=== PATIENT | female | born 1965 | race Two or more races ===

== ENCOUNTER 2023-02-23 17:46 | Inpatient (IN) | payer MEDICAID, OTHER ==
[~2023-02-23] VITALS: Ht 149.9 cm; Wt 96.9 kg
[2023-02-23] MEDS ORDERED: FUROSEMIDE 40 MG/4 ML VIAL IV ONE (18:30)
[2023-02-23 18:37] LABS: Basophils # (auto) 0 10 ^3/uL (0-0.2); Basophils % (auto) 0.3 % (0.0-2.0); Eosinophils # (auto) 0 10 ^3/uL (0-0.8); Eosinophils % (auto) 0.1 % (0.0-7.0); Hematocrit 30.2 % (36.0-46.0); Lymphocytes # (auto) 1.4 10 ^3/uL (0.4-5.4); Lymphocytes % (auto) 8.3 % (10.0-50.0); Mean Corpuscular Hemoglobin 27.6 pg (28.0-32.0); Mean Corpuscular Volume 83.5 fL (80.0-100.0); Monocytes % (auto) 5.8 % (0.0-12.0); Neutrophils # (auto) 14.3 10 ^3/uL (1.6-8.6); Neutrophils % (auto) 85.5 % (37.0-80.0); Nucleated Red Blood Cells % 0.2 %; Red Blood Cells 3.62 10^6/uL (4.0-5.20); Red Cell Distribution Width 15.1 % (11.8-14.3); White Blood Cell 16.7 10^3/uL (4.4-10.8)
[2023-02-23 18:53] LABS: Albumin 2.9 g/dL (3.4-5.0); Calcium 7.9 mg/dL (8.5-10.1); Potassium 4.6 mmol/L (3.5-5.1)
[2023-02-23 18:57] LABS: BUN/Creatinine Ratio 42.5 (10.0-20.0); Bilirubin, Total 0.2 mg/dL (0.2-1.0); Total Protein 5.1 g/dL (6.4-8.2)
[2023-02-23 19:08] LABS: Urine Bacteria FEW /hpf (None Seen); Urine Blood Negative /uL (Negative); Urine Specific Gravity 1.013 (1.001-1.035); Urine WBC 4 /hpf (0 - 5)
[2023-02-23] MEDS ORDERED: AZITHROMYCIN 500MG/ 250ML 250 ML IV ONE (20:07)
[2023-02-23] MEDS ORDERED: MORPHINE SULFATE INJ 2 MG/ml SYRG IV PRN (21:45)
[2023-02-23] MEDS ORDERED: DEXTROSE (50%) 50ML SYRG IV PRN (21:45)
[2023-02-23] MEDS ORDERED: ONDANSETRON HCL 4 MG/2 ML VIAL IV PRN (21:45)
[2023-02-23] MEDS ORDERED: NITROGLYCERIN 0.4 MG SL TAB SL PRN (21:45)
[2023-02-24] MEDS: InsuLIN REG 1unit/0.01ml Soln (100units/ml) SC SCH ×5 (00:11→22:26)
[2023-02-24] MEDS: ACCU-CHEK COMFORT CURVE STRIP VI SCH ×5 (00:11→22:25)
[2023-02-24] MEDS: METOPROLOL TARTRATE 50 MG TAB PO SCH ×3 (00:17→22:25)
[2023-02-24] MEDS: ATORVASTATIN 20 MG TAB PO SCH ×2 (00:18→22:25)
[2023-02-24] MEDS: GABAPENTIN 100 MG CAP PO SCH ×3 (00:18→22:25)
[2023-02-24 04:11] LABS: Basophils # (auto) 0 10 ^3/uL (0-0.2); Basophils % (auto) 0.2 % (0.0-2.0); Eosinophils # (auto) 0.1 10 ^3/uL (0-0.8); Eosinophils % (auto) 0.4 % (0.0-7.0); Hematocrit 32.4 % (36.0-46.0); Hemoglobin 10.7 g/dL (12.2-16.2); Lymphocytes # (auto) 2.5 10 ^3/uL (0.4-5.4); Lymphocytes % (auto) 15.6 % (10.0-50.0); Mean Corpuscular Hemoglobin 27.7 pg (28.0-32.0); Mean Corpuscular Hgb Conc. 32.9 g/dL (32.0-36.0); Mean Corpuscular Volume 84.2 fL (80.0-100.0); Monocytes # (auto) 1.3 10 ^3/uL (0-1.3); Monocytes % (auto) 8.2 % (0.0-12.0); Neutrophils # (auto) 12.3 10 ^3/uL (1.6-8.6); Neutrophils % (auto) 75.6 % (37.0-80.0); Nucleated Red Blood Cells % 0.1 %; Red Blood Cells 3.84 10^6/uL (4.0-5.20); White Blood Cell 16.3 10^3/uL (4.4-10.8)
[2023-02-24 04:22] LABS: Albumin 2.5 g/dL (3.4-5.0); BUN/Creatinine Ratio 38.3 (10.0-20.0); Calcium 8.2 mg/dL (8.5-10.1); Potassium 3.7 mmol/L (3.5-5.1)
[2023-02-24 04:24] LABS: Bilirubin, Total 0.2 mg/dL (0.2-1.0); Total Protein 5.6 g/dL (6.4-8.2)
[2023-02-24] MEDS ORDERED: ALBUMIN 25% 50 ML IV ONE (05:15)
[2023-02-24] MEDS: FUROSEMIDE 20 MG/2 ML VIAL IV SCH ×2 (06:10→20:22)
[2023-02-24] MEDS: cefTRIAXone 1GM/50ML D5W 50 ML IV SCH (09:28)
[2023-02-24] MEDS: ACETAMINOPHEN 325 MG TAB PO PRN ×2 (09:39→20:05)
[2023-02-24] MEDS ORDERED: cefTRIAXone 1GM/50ML D5W 50 ML IV SCH (10:00)
[2023-02-24] MEDS: AZITHROMYCIN 500MG/ 250ML 250 ML IV SCH (10:44)
[2023-02-24] MEDS: ENOXAPARIN SOD 30 MG/0.3 ML SYRINGE SC SCH (10:44)
[2023-02-24] MEDS: LISINOPRIL 20 MG TAB PO SCH (10:45)
[2023-02-24] MEDS: PANTOPRAZOLE 40 MG TAB PO SCH (10:45)
[2023-02-24] MEDS ORDERED: DULO1CAP6 PO (13:08)
[2023-02-24] MEDS ORDERED: ATOR10TA52 PO (13:08)
[2023-02-24] MEDS ORDERED: PIOG1TAB36 PO (13:08)
[2023-02-24] MEDS ORDERED: QUET100T47 PO (13:08)
[2023-02-24] MEDS ORDERED: HYDR-3682 PO (13:08)
[2023-02-24] MEDS ORDERED: EMPA1TAB PO (13:08)
[2023-02-24] MEDS ORDERED: CLON-853 PO (13:08)
[2023-02-24] MEDS ORDERED: DULO1CAP4 PO (13:08)
[2023-02-24] MEDS ORDERED: GAB100C PO (13:08)
[2023-02-24] MEDS ORDERED: MET50T PO (13:08)
[2023-02-24 16:57] VITALS: BP 157/74
[2023-02-24 17:00] VITALS: BP 153/71
[2023-02-24 22:00] VITALS: BP 147/67
[2023-02-25 05:00] VITALS: BP 142/93
[2023-02-25] MEDS: FUROSEMIDE 20 MG/2 ML VIAL IV SCH ×2 (05:57→22:46)
[2023-02-25] MEDS: InsuLIN REG 1unit/0.01ml Soln (100units/ml) SC SCH ×4 (07:00→22:29)
[2023-02-25] MEDS: ACCU-CHEK COMFORT CURVE STRIP VI SCH ×4 (07:04→22:28)
[2023-02-25 08:30] VITALS: BP 136/74
[2023-02-25] MEDS: cefTRIAXone 1GM/50ML D5W 50 ML IV SCH (08:46)
[2023-02-25] MEDS: ACETAMINOPHEN 325 MG TAB PO PRN (08:47)
[2023-02-25] MEDS: AZITHROMYCIN 500MG/ 250ML 250 ML IV SCH (10:18)
[2023-02-25] MEDS: GABAPENTIN 100 MG CAP PO SCH ×2 (10:20→22:27)
[2023-02-25] MEDS: ENOXAPARIN SOD 30 MG/0.3 ML SYRINGE SC SCH (10:20)
[2023-02-25] MEDS: PANTOPRAZOLE 40 MG TAB PO SCH (10:20)
[2023-02-25] MEDS: LISINOPRIL 20 MG TAB PO SCH (10:22)
[2023-02-25] MEDS: METOPROLOL TARTRATE 50 MG TAB PO SCH ×2 (10:23→22:28)
[2023-02-25 12:30] VITALS: BP 157/50
[2023-02-25 17:00] VITALS: BP 160/93
[2023-02-25 22:00] VITALS: BP 118/74
[2023-02-25] MEDS: ATORVASTATIN 20 MG TAB PO SCH (22:28)
[2023-02-26 05:00] VITALS: BP 143/71
[2023-02-26] MEDS: ACCU-CHEK COMFORT CURVE STRIP VI SCH ×4 (06:16→22:08)
[2023-02-26] MEDS: InsuLIN REG 1unit/0.01ml Soln (100units/ml) SC SCH ×4 (06:19→22:09)
[2023-02-26] MEDS: ACETAMINOPHEN 325 MG TAB PO PRN (06:52)
[2023-02-26] MEDS: FUROSEMIDE 20 MG/2 ML VIAL IV SCH ×2 (06:52→18:45)
[2023-02-26 08:30] VITALS: BP 133/88
[2023-02-26 09:20] LABS: Basophils # (auto) 0.1 10 ^3/uL (0-0.2); Basophils % (auto) 0.7 % (0.0-2.0); Eosinophils # (auto) 0.1 10 ^3/uL (0-0.8); Eosinophils % (auto) 0.5 % (0.0-7.0); Hematocrit 35.2 % (36.0-46.0); Lymphocytes # (auto) 2.3 10 ^3/uL (0.4-5.4); Lymphocytes % (auto) 19.3 % (10.0-50.0); Mean Corpuscular Hemoglobin 28.2 pg (28.0-32.0); Mean Corpuscular Hgb Conc. 34.1 g/dL (32.0-36.0); Mean Corpuscular Volume 82.7 fL (80.0-100.0); Monocytes % (auto) 8.8 % (0.0-12.0); Neutrophils # (auto) 8.2 10 ^3/uL (1.6-8.6); Neutrophils % (auto) 70.7 % (37.0-80.0); Nucleated Red Blood Cells % 0.1 %; Red Blood Cells 4.26 10^6/uL (4.0-5.20); Red Cell Distribution Width 14.8 % (11.8-14.3); White Blood Cell 11.7 10^3/uL (4.4-10.8)
[2023-02-26 09:30] LABS: BUN/Creatinine Ratio 18.8 (10.0-20.0); Calcium 9.5 mg/dL (8.5-10.1); Potassium 3.7 mmol/L (3.5-5.1)
[2023-02-26] MEDS: cefTRIAXone 1GM/50ML D5W 50 ML IV SCH (10:01)
[2023-02-26] MEDS: GABAPENTIN 100 MG CAP PO SCH ×2 (10:02→22:08)
[2023-02-26] MEDS: PANTOPRAZOLE 40 MG TAB PO SCH (10:02)
[2023-02-26] MEDS: ENOXAPARIN SOD 30 MG/0.3 ML SYRINGE SC SCH (10:02)
[2023-02-26] MEDS: METOPROLOL TARTRATE 50 MG TAB PO SCH ×2 (10:02→22:08)
[2023-02-26] MEDS: LISINOPRIL 20 MG TAB PO SCH (10:02)
[2023-02-26 12:30] VITALS: BP 160/77
[2023-02-26] MEDS: AZITHROMYCIN 500MG/ 250ML 250 ML IV SCH (12:32)
[2023-02-26] MEDS ORDERED: IOHEXOL 350 MG/ML 100ML IJ ONE (15:37)
[2023-02-26 17:00] VITALS: BP 139/82
[2023-02-26] MEDS ORDERED: HEPARIN SODIUM (PORCINE) 5000 UNITS/ML 1ML VIAL IV ONE (18:15)
[2023-02-26] MEDS ORDERED: HEPARIN DRIP/D5W 100UNITS/ML 250 ML IV SCH (18:15)
[2023-02-26 19:23] LABS: Basophils # (auto) 0.1 10 ^3/uL (0-0.2); Basophils % (auto) 0.6 % (0.0-2.0); Eosinophils # (auto) 0.1 10 ^3/uL (0-0.8); Eosinophils % (auto) 0.8 % (0.0-7.0); Hematocrit 36.1 % (36.0-46.0); Hemoglobin 11.8 g/dL (12.2-16.2); Lymphocytes # (auto) 2.4 10 ^3/uL (0.4-5.4); Lymphocytes % (auto) 22.8 % (10.0-50.0); Mean Corpuscular Hemoglobin 27.4 pg (28.0-32.0); Mean Corpuscular Hgb Conc. 32.7 g/dL (32.0-36.0); Mean Corpuscular Volume 83.6 fL (80.0-100.0); Monocytes % (auto) 9.1 % (0.0-12.0); Neutrophils # (auto) 7.1 10 ^3/uL (1.6-8.6); Neutrophils % (auto) 66.7 % (37.0-80.0); Nucleated Red Blood Cells % 0.2 %; Red Blood Cells 4.31 10^6/uL (4.0-5.20); White Blood Cell 10.6 10^3/uL (4.4-10.8)
[2023-02-26 19:37] LABS: Partial Thromboplastin Time 28.4 sec (24.6-33.4)
[2023-02-26 22:00] VITALS: BP 129/75
[2023-02-26] MEDS: ATORVASTATIN 20 MG TAB PO SCH (22:08)
[2023-02-27 02:50] LABS: INR 1.05 (0.9-1.15)
[2023-02-27 02:51] LABS: Partial Thromboplastin Time > 139.0 sec (24.6-33.4)
[2023-02-27 05:00] VITALS: BP 128/73
[2023-02-27] MEDS: ACCU-CHEK COMFORT CURVE STRIP VI SCH ×4 (06:19→22:30)
[2023-02-27] MEDS: InsuLIN REG 1unit/0.01ml Soln (100units/ml) SC SCH ×4 (06:24→22:31)
[2023-02-27] MEDS: FUROSEMIDE 20 MG/2 ML VIAL IV SCH ×2 (06:29→18:51)
[2023-02-27 08:59] VITALS: BP 123/72
[2023-02-27 09:18] LABS: INR 1.03 (0.9-1.15)
[2023-02-27 09:56] LABS: Partial Thromboplastin Time 125.5 sec (24.6-33.4)
[2023-02-27] MEDS: PANTOPRAZOLE 40 MG TAB PO SCH (10:11)
[2023-02-27] MEDS: METOPROLOL TARTRATE 50 MG TAB PO SCH ×2 (10:12→22:44)
[2023-02-27] MEDS: LISINOPRIL 20 MG TAB PO SCH (10:12)
[2023-02-27] MEDS: GABAPENTIN 100 MG CAP PO SCH ×2 (10:12→22:31)
[2023-02-27] MEDS: ACETAMINOPHEN 325 MG TAB PO PRN (10:13)
[2023-02-27] MEDS: HEPARIN DRIP/D5W 100UNITS/ML 250 ML IV SCH (11:04)
[2023-02-27 13:00] VITALS: BP_SYST 123; BP_SYST 147; BP_DIAS 72; BP_DIAS 88
[2023-02-27] MEDS: cefTRIAXone 1GM/50ML D5W 50 ML IV SCH (13:20)
[2023-02-27] MEDS: AZITHROMYCIN 500MG/ 250ML 250 ML IV SCH (14:13)
[2023-02-27 17:07] VITALS: BP 134/91
[2023-02-27 17:35] LABS: INR 1.02 (0.9-1.15); Partial Thromboplastin Time 61.5 sec (24.6-33.4)
[2023-02-27 22:00] VITALS: BP 119/65
[2023-02-27] MEDS: ATORVASTATIN 20 MG TAB PO SCH (22:31)
[2023-02-28 00:10] LABS: INR 1.03 (0.9-1.15); Partial Thromboplastin Time 56.7 sec (24.6-33.4)
[2023-02-28 05:00] VITALS: BP 108/64
[2023-02-28] MEDS: ACCU-CHEK COMFORT CURVE STRIP VI SCH ×4 (05:34→21:53)
[2023-02-28] MEDS: FUROSEMIDE 20 MG/2 ML VIAL IV SCH ×2 (06:21→18:15)
[2023-02-28] MEDS: InsuLIN REG 1unit/0.01ml Soln (100units/ml) SC SCH ×4 (06:22→21:52)
[2023-02-28] MEDS: ACETAMINOPHEN 325 MG TAB PO PRN ×3 (06:23→20:02)
[2023-02-28 06:28] LABS: INR 1.01 (0.9-1.15); Partial Thromboplastin Time 60.9 sec (24.6-33.4)
[2023-02-28] MEDS: HEPARIN DRIP/D5W 100UNITS/ML 250 ML IV SCH (07:56)
[2023-02-28 09:00] VITALS: BP 147/84
[2023-02-28] MEDS: GABAPENTIN 100 MG CAP PO SCH ×2 (10:29→21:50)
[2023-02-28] MEDS: LISINOPRIL 20 MG TAB PO SCH (10:29)
[2023-02-28] MEDS: PANTOPRAZOLE 40 MG TAB PO SCH (10:29)
[2023-02-28] MEDS: METOPROLOL TARTRATE 50 MG TAB PO SCH ×2 (10:31→22:00)
[2023-02-28] MEDS: cefTRIAXone 1GM/50ML D5W 50 ML IV SCH (12:45)
[2023-02-28 13:00] VITALS: BP 105/60
[2023-02-28 13:24] LABS: INR 1.03 (0.9-1.15); Partial Thromboplastin Time 51.1 sec (24.6-33.4)
[2023-02-28] MEDS: AZITHROMYCIN 500MG/ 250ML 250 ML IV SCH (14:44)
[2023-02-28 16:34] VITALS: BP 111/75
[2023-02-28 20:00] VITALS: BP 107/68
[2023-02-28] MEDS: ATORVASTATIN 20 MG TAB PO SCH (21:50)
[2023-02-28 22:00] VITALS: BP 107/68
[2023-03-01] MEDS: ACETAMINOPHEN 325 MG TAB PO PRN ×2 (03:44→11:07)
[2023-03-01] MEDS: HEPARIN DRIP/D5W 100UNITS/ML 250 ML IV SCH ×2 (04:23→04:28)
[2023-03-01 05:00] VITALS: BP 122/68
[2023-03-01] MEDS: FUROSEMIDE 20 MG/2 ML VIAL IV SCH (05:57)
[2023-03-01] MEDS: ACCU-CHEK COMFORT CURVE STRIP VI SCH ×3 (06:07→17:00)
[2023-03-01] MEDS: InsuLIN REG 1unit/0.01ml Soln (100units/ml) SC SCH ×3 (06:07→17:00)
[2023-03-01 06:26] LABS: INR 1.03 (0.9-1.15)
[2023-03-01] MEDS: LISINOPRIL 20 MG TAB PO SCH (08:56)
[2023-03-01] MEDS: METOPROLOL TARTRATE 50 MG TAB PO SCH (08:56)
[2023-03-01] MEDS: cefTRIAXone 1GM/50ML D5W 50 ML IV SCH (08:56)
[2023-03-01] MEDS: GABAPENTIN 100 MG CAP PO SCH (08:56)
[2023-03-01] MEDS: PANTOPRAZOLE 40 MG TAB PO SCH (08:56)
[2023-03-01 09:00] VITALS: BP 127/76
[2023-03-01] MEDS ORDERED: HEPARIN DRIP/D5W 100UNITS/ML 250 ML IV SCH (09:00)
[2023-03-01] MEDS: AZITHROMYCIN 500MG/ 250ML 250 ML IV SCH (09:36)
[2023-03-01] MEDS ORDERED: HEPARIN SODIUM (PORCINE) 5000 UNITS/ML 1ML VIAL IV ONE (09:45)
[2023-03-01 13:00] VITALS: BP 132/55
[2023-03-01] MEDS ORDERED: AZIT250T8 PO (15:46)
[2023-03-01] MEDS ORDERED: APIX5TAB PO (15:46)
[2023-03-01] MEDS ORDERED: APIXABAN 5 MG TAB PO SCH (16:00)
[2023-03-01 16:04] LABS: INR 1.05 (0.9-1.15)
[2023-03-01 16:38] VITALS: BP 132/55
[2023-03-01 16:55] VITALS: BP 128/85
== END 2023-03-01 17:00 | disposition home or self-care (01) | DRG 720 ==
LOC: ER 17:46 → TELE 21:53 → TELE-WESTW 02-24 16:06
PROVIDERS: ADMIT Nurse Practitioner; ATTEND Internal Medicine
DX: A41.9 Sepsis, unspecified organism (principal); I26.99 Other pulmonary embolism without acute cor pulmonale; I13.0 Hypertensive heart and chronic kidney disease with heart failure and stage 1 through stage 4 chronic kidney disease, or unspecified chronic kidney disease; J18.9 Pneumonia, unspecified organism; E44.0 Moderate protein-calorie malnutrition; E88.09 Other disorders of plasma-protein metabolism, not elsewhere classified; E87.1 Hypo-osmolality and hyponatremia; I50.9 Heart failure, unspecified; E11.22 Type 2 diabetes mellitus with diabetic chronic kidney disease; E78.5 Hyperlipidemia, unspecified; N39.0 Urinary tract infection, site not specified; N18.9 Chronic kidney disease, unspecified; Z68.41 Body mass index [BMI] 40.0-44.9, adult
CPT/HCPCS: 36415; 51702; 71046; 71275; 80048; 80053; 81001; 82962; 83605; 83880; 84484; 85025; 85379; 85610; 85730; 93005; 93306; 96365; 96366; 96367; 96375; 97110; 97116; 97163; 97530; G0378; J0696; J1815

== ENCOUNTER 2025-07-11 09:26 | Inpatient (IN) | payer MEDICAID ==
[~2025-07-11] VITALS: Ht 152.4 cm; Wt 86.9 kg
[~2025-07-11 09:26] MED LIST: APIX5TAB PO; ATOR10TA52 PO; CEPH250C PO; CLON-853 PO; DULO1CAP4 PO; DULO1CAP6 PO; EMPA1TAB PO; FOLI-119 PO; FURO40TA4 PO; GAB100C PO; HYDR-3682 PO; LOSA-534 PO; METH2.5T PO; METO25TA93 PO; OMEP20TA PO; PIOG1TAB36 PO; PRED20TA2 PO; QUET100T47 PO
--- NOTE | 2025-07-11 10:07 | ED.PDOC ---
History of Present Illness HPI Comments 59-year-old female who is Chinese-speaking presents to the ER in a wheelchair and with family with the chief complaint of left lower extremity swelling. Mother reports the she was stepping on the steps onto the RV when she misstepped falling back and injuring her left foot. This incident happened on Friday of 07/06/2025 in the patient went to the ER in [place] where they did an xray of the patient's right lower extremity for which the extremity was not fractured. Patient came in today with left lower extremity swelling, stating the the medications that the [facility] prescribed isn't strong enough for of the pain. Denies chills, fever, N/V/D, SOB, CP. No other associated symptoms, modifiers, recent injuries or sick contacts present at this time. Chief Complaint: Wound Check Time Seen by MD: 10:05 Reviewed Notes: Nurses Notes, Medications, Allergies Allergies: Coded Allergies: NO KNOWN ALLERGIES (Unverified , 02/23/23) Home Meds Active Scripts Prednisone (Prednisone) 20 Mg Tab, 20 MG PO DAILY, #7 MG Prov:WILLIAM GOFF MD 11/27/23 Cephalexin (KEFLEX CAPSULE) 250 Mg Cp, 1 CAP PO QID, #28 CAP Prov:WILLIAM GOFF MD 11/27/23 Apixaban Base (ELIQUIS) 5 Mg Tab, 5 MG PO BID for 30 Days, #60 TAB 1 Refill Prov:CHI GIBSON DO 03/01/23 Reported Medications Folic Acid (Folic Acid) 1 Mg Tab, 1 TAB PO DAILY 11/24/23 Omeprazole (Gnp Omeprazole) 20 Mg Tab, 1 TAB PO DAILY 11/24/23 Furosemide (Furosemide) 40 Mg Tab, 1 TAB PO DAILY 11/24/23 Methotrexate (Methotrexate) 2.5 Mg Tab, 8 TAB PO QWEEKLY 11/24/23 Losartan Potassium (Losartan Potassium) 50 Mg Tab, 1 TAB PO DAILY for 30 Days, MG 11/24/23 Metoprolol Succinate (Metoprolol Succinate Er) 25 Mg Tab, 1 TAB PO DAILY Take 1/2 tablet by mouth every day 11/24/23 Empagliflozin (Jardiance) 10 Mg Tab, 1 TAB PO DAILY 02/24/23 Duloxetine HCl (Duloxetine HCl) 60 Mg Cap, 1 CAP PO DAILY 02/24/23 Duloxetine HCl (Duloxetine HCl) 20 Mg Cap, 1 CAP PO DAILY 02/24/23 Clonazepam (Clonazepam) 1 Mg Tab, 1 TAB PO HS 02/24/23 Quetiapine Fumerate (QUETIAPINE FUMARATE) 100 Mg Tab, 1 TAB PO BID TAKE ONE TABLET IN THE MORNING AND 2 TABLETS BEFORE BEDTIME. 02/24/23 Hydroxyzine Hcl (Hydroxyzine Hcl) 25 Mg Tab, 1 TAB PO QID 02/24/23 Pioglitazone Hydrochloride (PIOGLITAZONE HCL) 15 Mg Tab, 1 TAB PO DAILY 02/24/23 Gabapentin (Gabapentin) 100 Mg Cap, 2 TAB PO HS 02/24/23 Atorvastatin Calcium (ATORVASTATIN CALCIUM) 10 Mg Tab, 1 TAB PO HS 02/24/23 Information Source: Patient Mode of Arrival: Wheelchair Severity: Moderate Timing: Days Duration: Since onset, Days Prehospital treatment: None Past Medical History PAST MEDICAL HISTORY: DM, High Lipids, HTN Surgical History: Denies all surgeries ACUTE DIALYSIS REGISTERED NURSE History: No Pertinent ACUTE DIALYSIS REGISTERED NURSE History Family History Family History: Reviewed,noncontributory to illness, Unknown Social History Smoker: Non-Smoker Alcohol: Denies ETOH Use Drugs: Denies Drug Use Lives In: Home Constitutional: denies: chills, diaphoresis, fatigue, fever, malaise, sweats, weakness, others EENTM: denies: blurred vision, double vision, ear bleeding, ear discharge, ear drainage, ear pain, ear ringing, eye pain, eye redness, hearing loss, mouth pain, mouth swelling, nasal discharge, nose bleeding, nose congestion, nose pain, photophobia, tearing, throat pain, throat swelling, voice changes, others Respiratory: denies: cough, hemoptysis, orthopnea, SOB at rest, shortness of breath, SOB with excertion, stridor, wheezing, others Cardiovascular: denies: chest pain, dizzy spells, diaphoresis, Dyspnea on exertion, edema, irregular heart beat, left arm pain, lightheadedness, palpitations, PND, syncope, others Gastrointestinal: denies: abdomen distended, abdominal pain, blood streaked bowels, constipated, diarrhea, dysphagia, difficulty swallowing, hematemesis, melena, nausea, poor appetite, poor fluid intake, rectal bleeding, rectal pain, vomiting, others Genitourinary: denies: abnormal vagina bleeding, burning, dyspareunia, dysuria, flank pain, frequency, hematuria, incontinence, pain, , vagina dis charge, urgency, others Neurological: denies: dizziness, fainting, headache, left sided numbness, left sided weakness, numbness, paresthesia, pre-existing deficit, right sided numbness, right sided weakness, seizure, speech problems, tingling, tremors, weakness, others Musculoskeletal: reports: others (Left foot swelling); denies: back pain, gout, joint pain, joint swelling, muscle pain, muscle stiffness, neck pain Integumetry: denies: bruises, change in color, change in hair/nails, dryness, laceration, lesions, lumps, rash, wounds, others Allergic/Immunocompromised: denies: Difficulty Healing, Frequent Infections, Hives, Itching, others Hematologic/Lymphatic: denies: anemia, blood clots, easy bleeding, easy bruising, swollen glands, others Endocrine: denies: excessive hunger, excessive sweating, excessive thirst, excessive urination, flushing, intolerance to cold, intolerance to heat, unexplained weight gain, unexplained weight loss, others Psychiatric: denies: anxiety, bipolar disorder, depression, hopeless, panic disorder, schizophrenia, sleepless, suicidal, others All Other Systems: Reviewed and Negative Physical Exam General Appearance: No Apparent Distress, Normal HEENT: Normal ENT Inspection, Pharynx Normal, TMs Normal Neck: Full Range of Motion, Non-Tender, Normal, Normal Inspection Respiratory: Chest Non-Tender, Lungs Clear, No Accessory Muscle Use, No Respiratory Distress, Normal Breath Sounds Cardiovascular: No Edema, No JVD, No Murmur, No Gallop, Normal Peripheral Pulses, Regular Rate/Rhythm Breast Exam: Deferred Gastrointestinal: No Organomegaly, Non Tender, No Pulsatile Mass, Normal Bowel Sounds, Soft Genitalia: Deferred Pelvic: Deferred Rectal: Deferred Extremities: No calf tenderness, Normal capillary refill, Normal inspection, Normal range of motion, Non-tender, No pedal edema Musculoskeletal : Location: Left Extremity Location: Ankle, Foot Apperance: Swelling, Deformity, Tenderness 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 Was a procedure done?: No Differential Dx Considerations may include: Ankle fracture, foot fracture X-Ray, Labs, Meds, VS Vital Signs Date Time Temp Pulse Resp B/P (MAP) Pulse Ox O2 Delivery O2 Flow Rate FiO2 07/11/25 09:28 98.0 109 18 154/93 96 98.0 Current Medications Medications (Trade) Dose Ordered Sig/Jerzy Route Start Time Stop Time Status Last Admin Acetaminophen/ Hydrocodone Bitart (Nebo 10/325MG Tab) 1 tab ONCE ONCE PO 07/11/25 10:00 07/11/25 10:01 DC 07/11/25 12:44 Time of 1ST Reevaluation: 10:35 Reevaluation 1ST: Unchanged Patient Education/Counseling: Diagnosis, Treatment, Prognosis Family Education/Counseling: No Family Present SEPSIS Sepsis Screen Date sepsis recognized/suspect: Jul 11, 2025 Time Sepsis recognized/suspect: 927 Recent Procedure: No On Antibiotic Therapy: No Respiratory Rate >20: No Heart Rate >90: Yes Temp<36 C (96.8 F) or >38.3 C: No SBP <90 or MAP <65 mmHG: No New Acute Mental Status Change: No Is the patient on CPAP, BIPAP,: No Physician Orders L Ankle 3 View (07/11/25 09:51) Ct L Ankle Wo Contrast (07/11/25 12:43) Basic Metabolic Panel (07/11/25 14:51) Complete Blood Count (07/11/25 14:51) Morphine Sulfate Injection (07/11/25 15:00) NS (07/11/25 15:00) Ondansetron Hcl (Zofran) (07/11/25 15:00) *Podiatry Consult Khushi([facility]) (07/11/25 14:51) Vital Signs Date Time Temp Pulse Resp B/P (MAP) Pulse Ox O2 Delivery O2 Flow Rate FiO2 07/11/25 09:28 98.0 109 18 154/93 96 98.0 Medications Medications Dose Ordered Sig/Jerzy Route Start Time Stop Time Status Last Admin Dose Admin Acetaminophen/ Hydrocodone Bitart 1 tab ONCE ONCE PO 07/11/25 10:00 07/11/25 10:01 DC 07/11/25 12:44 Departure 1 Departure Time of Disposition: 14:52 (Patient with a complex with a fracture that may be operative. Patient with inability to walk and worsening pain. We will admit patient for pain control and expert consultation) Impression: Primary Impression: Left calcaneal fracture Qualified Codes: S92.002A - Unspecified fracture of left calcaneus, initial encounter for closed fracture Additional Impression: Inability to ambulate due to ankle or foot Disposition: 09 ADMITTED INPATIENT Admit to: Med Surg Condition: Serious Critical Care Note Critical Care Time?: No Stability Stability form required: No I personally scribed for DWAYNE TANG MD ([email or web address]) on 07/11/25 at 10:07. Electronically submitted by David Wei ([email or web address]). DWAYNE TANG MD Jul 11, 2025 10:07
--- NOTE | 2025-07-11 10:46 | DVH ---
EXAM: XY L ANKLE 3 VIEW CLINICAL INDICATION: fall TECHNIQUE: XY L ANKLE 3 VIEW Comparison: None FINDINGS/IMPRESSION: Possible fracture involving the lateral aspect of the cuboid and talus. CT recommended. Diffuse soft tissue swelling.
[2025-07-11] MEDS: HYDROcodone-ACET 10/325MG TAB PO ONE (12:44)
--- NOTE | 2025-07-11 13:47 | DVH ---
CLINICAL INFORMATION: Possible fracture seen on same day radiographs. TECHNIQUE: Axial CT images of the left ankle were obtained without IV contrast. Coronal and sagittal reformatted images were obtained, reviewed, and stored. All CT scans at this medical facility are pe rformed using dose modulation techniques as appropriate to a performed exam including the following: Automated exposure control was utilized; adjustment of the MA and/or KV according to patient size; an d use of iterative reconstruction technique. CTDIvol = 7.89 mGy DLP = 174.11 mGy-cm COMPARISON: XY L ANKLE 3 VIEW on DOS: 07/11/25 FINDINGS: Acute, comminuted fracture of the body of the calcaneus involving the articular surface of the subtalar joint with single fracture plane demonstrated at the level of the posterior facet of the subtalar joint and demonstrating up to 2.5 mm gap at the articular surface. There is also depressio n of the fracture components involving the articular surface. Multiple additional calcaneal fracture planes are seen with displaced osseous fragments. There is a fracture plane extending to the sustenta culum shreyas of the calcaneus. Fracture planes extend to the articular surface of the calcaneocuboid velvet int. There is associated fracture involving the anterior process of the calcaneus and fracture deform ity at the dorsal medial aspect of the proximal cuboid. No fracture visualized in the talus. There is a small mildly displaced fracture fragment along the posterior aspect of the lateral malleolus with associated mild cortical deformity of the posterior aspect of the lateral malleolus. Moderate subcuta neous edema around the ankle, most prominent near the level of the calcaneal fracture. Focal ovoid cu taneous nodular density measuring up to 1.2 cm at the posteromedial aspect of the ankle. IMPRESSION: 1. Acute, comminuted, intra-articular fracture of the calcaneus as detailed above. Most consistent wi th a Calvillo 2A type fracture. 2. Additional fracture planes in the calcaneus as detailed above. 3. Small fracture at the dorsal medial aspect of the cuboid. 4. Small fracture at the posterior aspect of the lateral malleolus with small mildly displaced osseou s fragment along its posterior aspect. 5. Additional findings as detailed above.
[2025-07-11 15:32] LABS: Hematocrit 37.9 % (36.0-46.0); Hemoglobin 12.6 g/dL (12.2-16.2); Mean Corpuscular Hemoglobin 26.9 pg (28.0-32.0); Mean Corpuscular Volume 81.2 fL (80.0-100.0); Nucleated Red Blood Cells % 0.0 %
[2025-07-11 15:40] LABS: Anion Gap 11 (5-15); Carbon Dioxide 25 mmol/L (20-31); Potassium 3.9 mmol/L (3.5-5.1)
[2025-07-11 15:41] LABS: Calcium 9.9 mg/dL (8.7-10.4); Chloride 94 mmol/L (98-107); Sodium 130 mmol/L (136-145)
[2025-07-11 15:46] LABS: BUN/Creatinine Ratio 13.4 (10.0-20.0); Blood Urea Nitrogen 11 mg/dL (9-23); Glucose 138 mg/dL (74-106)
[2025-07-11] MEDS: MORPHINE SULFATE 4 MG/ML SYR/VIAL IV ONE (23:27)
[2025-07-11] MEDS: ONDANSETRON HCL 4 MG/2 ML VIAL IV ONE (23:27)
[2025-07-11] MEDS: SODIUM CHLORIDE 0.9% 1,000 ML IV ONE (23:28)
[2025-07-12] VITALS (7 sets, daily range): BP systolic 125–156; BP diastolic 58–78; PULSE 73–106; RESP 15–20; TEMP 97.5–98.3; O2SAT 94–99
--- NOTE | 2025-07-12 00:59 | DVHHPRES ---
History of Present Illness Resident Creating Document: HAYDEE BLAKE RESIDENT History of Present Illness Ms. Amilcar Medina is a 59-year-old female with prior medical history of type 2 diabetes mellitus, hypertension, hyperlipidemia, rheumatoid arthritis, diabetic neuropathy, HFpEF, non occlusive PE, and uterine fibroids who presents to the ED with chief complaint of left foot pain. The patient states that on 07/06/2025 she was climbing the stairs of her trailer when she missed a step, her left foot got stuck, and she fell backwards down the steps. The patient states she imm ediately felt severe pain in her left foot and was taken to a hospital in [place] was told there was no fracture and to take [id number] pain medicine as needed. However, she states the foot continued to swell, the pain worsened, and she was unable to bear weight on her left foot, Which prompted her to seek care at the ED. On evaluation in the ED, the patient was tachycardic and hypertensive. Initial labs show CBC within normal range, hyponatremia and hyperglycemia. Left ankle x-ray shows possible fracture involving the lateral aspect of the cuboid and talus. Left ankle CT shows acute comminuted intra- articular fracture of the calcaneus, additional fracture planes in the calcaneus, small fracture at the dorsal medial aspect of the cuboid, small fr acture of the posterior aspect of the lateral malleolus with a mildly displaced osseous fragment along its posterior aspect. She was started on IV pain medication. She was admitted for further workup and monitoring. 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 HEENT: Denies changes in vision and hearing. Respiratory: Denies shortness of breath and cough Cardiovascular: Denies chest discomfort or palpitations GI: Denies abdominal distention, abdominal pain, diarrhea : Denies dysuria and urinary frequency. Musculoskeletal: Refers localized back pain, refers intense pain of left foot Skin: Denies rash and pruritus. Neurological: denies dizziness headache vision or hearing problems Allergies: Coded Allergies: NO KNOWN ALLERGIES (Unverified , 02/23/23) Exam Vital Signs Vital Signs Date Time Temp Pulse Resp B/P (MAP) Pulse Ox O2 Delivery O2 Flow Rate FiO2 07/11/25 23:33 Room Air* 0 21 07/11/25 23:27 110 19 126/76 07/11/25 23:24 97 07/11/25 09:28 98.0 98.0 Exam General: The patient alert and oriented in person place and time. Patient following commands HEENT: Normocephalic, atraumatic, reactive pupils, EOM intact, pink conjunctiva, pink moist mucous membrane Respiratory/pulmonary: Bilateral chest expansion, clear lungs bilaterally, no pain on palpation, vesicular murmurs present in almost all lung hendrix, no associated crackles or wheezes Cardiovascular: Normal RRR, normal S1 and S2, no murmurs Abdomen: Obese, abdomen nondistended, normal bowel sounds, soft, there is no pain to palpation in any of the abdominal quadrants, no palpable masses. Extremities: Swollen left foot and ankle, ecchymoses covering left foot and medial ankle reaching up to mid calf, presence of a blood-filled ampule on medial surface of left foot, inability to move left ankle, pain to palpation of left foot, there is no peripheral edema present at the lower extremities, pulses are present could not evaluate correctly pulse on left foot due to swelling and pain Skin: No rashes or pruritus, there is no sacral edema present at this time. Neurological: Intact cranial nerves with no focal neurologic deficits Labs/Xrays Labs Test 07/11/25 15:13 Range/Units White Blood Count 8.4 4.4-10.8 10^3/uL Red Blood Count 4.67 4.0-5.20 10^6/uL Hemoglobin 12.6 12.2-16.2 g/dL Hematocrit 37.9 36.0-46.0 % Mean Corpuscular Volume 81.2 80.0-100.0 fL Mean Corpuscular Hemoglobin 26.9 L 28.0-32.0 pg Mean Corpuscular Hemoglobin Concent 33.1 32.0-36.0 g/dL Red Cell Distribution Width 13.8 11.8-14.3 % Platelet Count 323 140-450 10^3/uL Mean Platelet Volume 7.7 6.9-10.8 fL Neutrophils (%) (Auto) 61.4 37.0-80.0 % Lymphocytes (%) (Auto) 30.7 10.0-50.0 % Monocytes (%) (Auto) 6.2 0.0-12.0 % Eosinophils (%) (Auto) 1.2 0.0-7.0 % Basophils (%) (Auto) 0.5 0.0-2.0 % Neutrophils # (Auto) 5.1 1.6-8.6 10 ^3/uL Lymphocytes # (Auto) 2.6 0.4-5.4 10 ^3/uL Monocytes # (Auto) 0.5 0-1.3 10 ^3/uL Eosinophils # (Auto) 0.1 0-0.8 10 ^3/uL Basophils # (Auto) 0 0-0.2 10 ^3/uL Nucleated Red Blood Cells 0.0 % Sodium Level 130 L 136-145 mmol/L Potassium Level 3.9 3.5-5.1 mmol/L Chloride Level 94 L 98-107 mmol/L Carbon Dioxide Level 25 20-31 mmol/L Anion Gap 11 5-15 Blood Urea Nitrogen 11 9-23 mg/dL Creatinine 0.82 0.550-1.02 mg/dL Glomerular Filtration Rate Calc 82 >90 mL/min BUN/Creatinine Ratio 13.4 10.0-20.0 Serum Glucose 138 H 74-106 mg/dL Calcium Level 9.9 8.7-10.4 mg/dL SEPSIS Sepsis Screen Date sepsis recognized/suspect: Jul 11, 2025 Time Sepsis recognized/suspect: 2334 Recent Procedure: No On Antibiotic Therapy: No Respiratory Rate >20: No Heart Rate >90: No Temp<36 C (96.8 F) or >38.3 C: No SBP <90 or MAP <65 mmHG: No New Acute Mental Status Change: No Is the patient on CPAP, BIPAP,: No Physician Orders Magnesium (07/12/25 00:34) PTPTT (07/12/25 00:34) Hemoglobin A1c (07/12/25 00:34) * Orthopedic Consult (07/12/25 00:34) Lactic Acid W/ Reflex Order (07/12/25 00:34) Phosphorus (07/12/25 00:34) Thyroid Stimulating Hormone (07/12/25 00:34) Vitamin B12 (07/12/25 00:34) Vitamin D, 25-Hydroxy (07/12/25 00:34) Drug Screen (07/12/25 00:34) Vital Signs Date Time Temp Pulse Resp B/P (MAP) Pulse Ox O2 Delivery O2 Flow Rate FiO2 07/11/25 23:33 Room Air* 0 21 07/11/25 23:27 110 19 126/76 07/11/25 23:24 111 19 126/76 (93) 97 Laboratory Tests Test 07/11/25 15:13 White Blood Count 8.4 10^3/uL (4.4-10.8) Medications Medications Dose Ordered Sig/Jerzy Route Start Time Stop Time Status Last Admin Dose Admin Morphine Sulfate 4 mg ONCE ONCE IV 07/11/25 15:00 07/11/25 15:01 DC 07/11/25 23:27 4 MG Ondansetron HCl 4 mg ONCE ONCE IV 07/11/25 15:00 07/11/25 15:01 DC 07/11/25 23:27 4 MG Sodium Chloride 1,000 ml @ 1,000 mls/hr Q1H ONCE IV 07/11/25 15:00 07/11/25 15:59 DC 07/11/25 23:28 1,000 MLS/HR Assessment/Plan Assessment/Plan Assessment and plan: Left acute Comminuted intra-articular fracture of the calcaneus - CT left ankle: Acute comminuted intra-articular fracture of the calcaneus as detailed above. Most consistent with a Calvillo to a type fracture is a fracture plane extending to the sustentaculum shreyas f the calcaneus. Fracture planes extend to the articular surface of the calcaneocuboid joint. - Morphine 2 mg IV q.4 hours PRN - Orthopedics consult has been placed - Patient has been placed on NPO in case decision to take her to the OR is made Fracture of dorsal medial aspect of the cuboid - CT left ankle: Associated fracture involving the anterior process of the calcaneus and fracture deformity at the dorsal medial aspect of the proximal cuboid. - as above Fracture at the posterior aspect of the lateral malleolus - CT left ankle: Small fracture at the posterior aspect of the lateral malleolus with small mildly displaced osseous fragment along its posterior aspect - as above Uncontrolled type 2 diabetes mellitus with hyperglycemia, HbA1c 8.1% -Mild SSI -Accu-Cheks -Consistent carbohydrate diet once NPO is lifted Hypertension - Losartan 50 mg p.o. daily Hyperlipidemia - atorvastatin 10 mg p.o. daily History of nonocclusive PE - Lovenox 90 mg SC q.12 hours Diabetic neuropathy - gabapentin 200 mg p.o. daily Rheumatoid arthritis - calcium acetate 667 mg p.o. t.i.d. -Vitamin-D 60518 units p.o. Q 7D Chronic HFpEF, currently not exacerbated - Jardiance 10 mg p.o. daily - furosemide 40 mg p.o. daily - metoprolol succinate 25 mg p.o. daily Morbid obesity -I have counseled the patient on the importance of obtaining a balanced diet, weight loss, and regular moderate exercise once condition permits Tobacco use -I have counseled the patient on the importance of complete smoking cessation as it is detrimental to general health for over 12 minutes Diet: NPO DVT prophylaxis: Currently not indicated as the patient is on therapeutic Lovenox GI prophylaxis: Protonix 40 mg IV daily Case discussed with Dr. Xiao Goals of care discussed with the patient for over 25 minutes. FULL CODE. Plan discussed with: Patient, Other (Nurses) My Orders Orders - HAYDEE BLAKE RESIDENT Procedure Category Date Status Time Magnesium LAB 07/12/25 Logged 00:34 PTPTT LAB 07/12/25 Logged 00:34 Hemoglobin A1c LAB 07/12/25 Logged 00:34 * Orthopedic Consult CONS 07/12/25 Transmitted 00:34 Lactic Acid W/ Reflex LAB 07/12/25 Logged Order 00:34 Phosphorus LAB 07/12/25 Logged 00:34 Thyroid Stimulating LAB 07/12/25 Logged Hormone 00:34 Vitamin B12 LAB 07/12/25 Logged 00:34 Vitamin D, 25-Hydroxy LAB 07/12/25 Logged 00:34 Drug Screen LAB 07/12/25 Logged 00:34 Date of Service: Jul 12, 2025 Billing Provider: CHARAN XIAO MD Common Visit Codes: [id number] INP/OBS CARE (HIGH) Secondary Visit Codes: [id number] CARE PLAN 30 MINUTES HAYDEE BLAKE Jul 12, 2025 00:59 SEB STEVEN RESIDENT Jul 12, 2025 04:30
[2025-07-12] MEDS ORDERED: DEXTROSE (50%) 50ML SYRG IV PRN ×2 (01:00→14:00)
[2025-07-12] MEDS ORDERED: ACETAMINOPHEN 325 MG TAB PO PRN (01:00)
[2025-07-12 01:39] LABS: Magnesium 1.5 mg/dL (1.6-2.6)
[2025-07-12 01:54] LABS: INR 1.04 (0.9-1.15); Partial Thromboplastin Time 33.3 SEC (24.5-34.5); Prothrombin Time 11.0 sec (9.3-11.8)
[2025-07-12] MEDS: SODIUM CHLORIDE 0.9% 1,000 ML IV SCH (02:47)
[2025-07-12] MEDS: MORPHINE SULFATE INJ 2 MG/ml SYRG IV PRN ×2 (04:05→21:11)
--- NOTE | 2025-07-12 05:48 | DVH ---
CLINICAL INDICATION: Hip pain TECHNIQUE: XY PELVIS AP, XY L KNEE 3V XRAY, XY R HIP COMPLETE XRAY, XY L HIP COMPLETE XRAY Comparison: XY R HIP COMPLETE XRAY on DOS: 07/12/25, XY L HIP COMPLETE XRAY on DOS: 07/12/25, CT PELVIS WO CONTRAST on DOS: 11/24/23 FINDINGS/IMPRESSION: : There is no evidence of acute fracture or dislocation. [id number] degenerative changes of bilateral hips. Trace left knee joint effusion. [id number] degenerative changes of the left knee.
[2025-07-12] MEDS ORDERED: PATIENTS OWN MEDICATION (Hydroxyzine Hcl 1 TAB) PO SCH (06:00)
[2025-07-12 06:15] LABS: Benzodiazephine Screen, Urine Neg (NEGATIVE)
[2025-07-12 06:16] LABS: Phencyclidine Screen, Urine Neg (NEGATIVE)
[2025-07-12] MEDS: hydrOXYzine 25 MG TAB or CAP PO SCH ×2 (06:17→22:34)
[2025-07-12 06:18] LABS: Amphetamine Screen, Urine Neg (NEGATIVE); Barbiturate Scree,Urine Neg (NEGATIVE); Cannabinoid Screen, Urine Neg (NEGATIVE); Cocaine Screen, Urine Neg (NEGATIVE); Opiate Scree,Urine Pos (NEGATIVE)
[2025-07-12] MEDS: ACCU-CHEK COMFORT CURVE STRIP VI SCH ×2 (06:18→17:51)
[2025-07-12] MEDS: InsuLIN REG 1unit/0.01ml Soln (100units/ml) SC SCH ×2 (06:26→17:54)
[2025-07-12] MEDS: CALCIUM ACETATE 667 MG CAP PO SCH (08:00)
[2025-07-12] MEDS ORDERED: ERGOCALCIFEROL 50,000 UNIT(1.25MG) CAP PO SCH (09:00)
[2025-07-12] MEDS: ENOXAPARIN SOD 100 MG/1 ML SYRINGE SC SCH (09:29)
[2025-07-12] MEDS: EMPAGLIFLOZIN 10 MG TAB PO SCH (09:30)
[2025-07-12] MEDS: PANTOPRAZOLE 40 MG TAB PO SCH (09:30)
[2025-07-12] MEDS: LOSARTAN POTASSIUM 50 MG TAB PO SCH (09:30)
[2025-07-12] MEDS: METOPROLOL SUCCINATE XL 50 MG TAB PO SCH (09:30)
[2025-07-12] MEDS: FOLIC ACID 1 MG TAB PO SCH (09:31)
[2025-07-12] MEDS: predniSONE 20 MG TAB PO SCH (09:31)
[2025-07-12] MEDS: MAGNESIUM SULFATE 1GM/100ML 100 ML IV SCH (09:38)
[2025-07-12] MEDS ORDERED: PATIENTS OWN MEDICATION (Duloxetine HCl 1 CAP) PO SCH (10:00)
[2025-07-12] MEDS ORDERED: PATIENTS OWN MEDICATION (Prednisone 20 MG) PO SCH (10:00)
[2025-07-12] MEDS ORDERED: PATIENTS OWN MEDICATION (Metoprolol Succinate (Metoprolol Succinate Er) 1 TAB) PO SCH (10:00)
[2025-07-12] MEDS ORDERED: PATIENTS OWN MEDICATION (Omeprazole (Gnp Omeprazole) 1 TAB) PO SCH (10:00)
[2025-07-12] MEDS ORDERED: FUROSEMIDE 40 MG TAB PO SCH (10:00)
[2025-07-12] MEDS ORDERED: PATIENTS OWN MEDICATION (Folic Acid 1 TAB) PO SCH (10:00)
[2025-07-12 10:20] LABS: Hemoglobin 11.2 g/dL (12.2-16.2); Nucleated Red Blood Cells % 0.0 %
[2025-07-12 10:22] LABS: Hematocrit 33.6 % (36.0-46.0); Mean Corpuscular Hemoglobin 26.8 pg (28.0-32.0); Mean Corpuscular Volume 80.2 fL (80.0-100.0)
[2025-07-12 10:37] LABS: Alanine Aminotransferase 24 U/L (7-40); Albumin 4.3 g/dL (3.2-4.8); Alkaline Phosphatase 92 U/L (46-116); Anion Gap 10 (5-15); BUN/Creatinine Ratio 15.5 (10.0-20.0); Blood Urea Nitrogen 15 mg/dL (9-23); Calcium 9.0 mg/dL (8.7-10.4); Carbon Dioxide 24 mmol/L (20-31); Potassium 4.1 mmol/L (3.5-5.1); Total Protein 7.0 g/dL (5.7-8.2)
[2025-07-12 10:38] LABS: Bilirubin, Total 0.6 mg/dL (0.2-1.0)
[2025-07-12 10:43] LABS: Chloride 96 mmol/L (98-107); Glucose 183 mg/dL (74-106); Sodium 130 mmol/L (136-145)
--- NOTE | 2025-07-12 11:13 | DVHPNRES ---
Progress Note Date Seen: Jul 12, 2025 Resident Creating Document: VANESSA CALDERON RESIDENT Medical Necessity Reason Pt with a Central, PICC or Fol: No Subjective Review of Systems Ms. Amilcar Medina is a 59-year-old female with prior medical history of type 2 diabetes mellitus, hypertension, hyperlipidemia, rheumatoid arthritis, diabetic neuropathy, HFpEF, non occlusive PE, and uterine fibroids who presents to the ED with chief complaint of left foot pain. The patient states that on 07/06/2025 she was climbing the stairs of her trailer when she missed a step, her left foot got stuck, and she fell backwards down the steps. The patient states she immediately felt severe pain in her left foot and was taken to a hospital in [place] was told there was no fracture and to take [id number] pain medicine as needed. However, she states the foot continued to swell, the pain worsened, and she was unable to bear weight on her left foot, Which prompted her to seek care at the ED. On evaluation in the ED, the patient was tachycardic and hypertensive. Initial labs show CBC within normal range, hyponatremia and hyperglycemia. Left ankle x-ray shows possible fracture involving the lateral aspect of the cuboid and talus. Left ankle CT shows acute comminuted intra- articular fracture of the calcaneus, additional fracture planes in the calcaneus, small fracture at the dorsal medial aspect of the cuboid, small fracture of the posterior aspect of the lateral malleolus with a mildly displaced osseous fragment along its posterior aspect. She was started on IV pain medication. She was admitted for further workup and monitoring. Cardiovascular: CHF, HTN, hyperipidemia Pulmonary: Pulmonary embolus PHOTOGRAPHIC PRINTER: Periperal neuropathy Rheumatologic: Rheumatoid arthritis Endocrine: Diabetes Past Surgical History: Hysterectomy, Other (Mass removal from left kidney) Smoke: <1 pack per day (Smokes 1 pack in 2 days and has done so for 46 years) ALCOHOL: heavy (Drinks 6-7 beers on Saturdays) Drugs: None Lives: Alone Domestic Violence: Neg The patient was seen and examined at bedside. Overnight events were reviewed The patient reports having severe left leg pain. She reports mild shortness of breaths, EKG was done, which reveals no abnormality. Objective vital signs Vital Sign Date Time Temp Pulse Resp B/P (MAP) Pulse Ox O2 Delivery O2 Flow Rate FiO2 07/12/25 10:04 98 07/12/25 10:00 16 106/52 (70) 95 07/12/25 08:30 Room Air* 0 21 07/12/25 08:00 98.1 98.1 medications Current Medications Medications Dose Ordered Sig/Jerzy Route Start Time Stop Time Status Last Admin Dose Admin Acetaminophen 325 mg Q4HP PRN PO 07/12/25 01:00 Morphine Sulfate 2 mg Q4HPRN PRN IV 07/12/25 01:00 07/12/25 04:05 2 MG Sodium Chloride 1,000 ml @ 100 mls/hr Q10H IV 07/12/25 01:00 07/12/25 04:39 100 MLS/HR Ergocalciferol 50,000 unit Q7D PO 07/12/25 09:00 Hold Calcium Acetate 667 mg TIDWMEALS PO 07/12/25 08:00 Empaglifozin 10 mg DAILY PO 07/12/25 10:00 07/12/25 09:30 10 MG Gabapentin 200 mg HS PO 07/12/25 22:00 Losartan Potassium 50 mg DAILY PO 07/12/25 10:00 07/12/25 09:30 50 MG Quetiapine Fumarate 100 mg BID PO 07/12/25 10:00 07/12/25 09:31 100 MG Patient Own Medication 1 cap DAILY PO 07/12/25 10:00 Hold Diagnostic Test (Pha) 1 strip Q6HR 07/12/25 06:00 07/12/25 06:18 1 STRIP Insulin Human Regular Q6HR SC 07/12/25 06:00 07/12/25 06:26 3 UNITS Dextrose 50 ml UD PRN IV 07/12/25 01:00 Enoxaparin Sodium 90 mg Q12HR SC 07/12/25 10:00 07/12/25 09:29 90 MG Atorvastatin Calcium 10 mg HS PO 07/12/25 22:00 Clonazepam 1 mg HS PO 07/12/25 22:00 Folic Acid 1 mg DAILY PO 07/12/25 10:00 07/12/25 09:31 1 MG Hydroxyzine Pamoate 25 mg QID PO 07/12/25 06:00 07/12/25 06:17 25 MG Metoprolol Succinate 25 mg DAILY PO 07/12/25 10:00 07/12/25 09:30 25 MG Prednisone 20 mg DAILY PO 07/12/25 10:00 07/12/25 09:31 20 MG Pantoprazole Sodium 40 mg DAILY PO 07/12/25 10:00 07/12/25 09:30 40 MG Examination Pt is lying on bed General Appearance: Alert, Oriented X3, Cooperative, Mild distress HEENT: Atraumatic, Mucous membranes moist/pink Respiratory: Clear to auscultation, Normal air movement, No added sounds Cardiovascular: Regular rate, Normal S1, Normal S2, No murmurs Abdominal/ : Active bowel sounds, Soft, no distention, no tenderness Extremities: No edema, Normal pulses, No tenderness/swelling Skin: No Significant rash, except past surgical scars Neuro: Normal speech, sensorimotor deficits none Psych/Mental Status: Mental status NL, Mood NL Nurse was there as audio visual aids director during examination laboratory and microbiology Laboratory Tests 07/12/25 10:00 Test 07/12/25 10:00 Range/Units Serum Glucose 183 H 74-106 mg/dL Labs and/or images reviewed: Labs reviewed by me, Image(s) reviewed by me Problem List/Assessment/Plan Problem List/Assessment/Plan Left acute Comminuted intra-articular fracture of the calcaneus - CT left ankle: Acute comminuted intra-articular fracture of the calcaneus as detailed above. Most consistent with a Calvillo to a type fracture is a fracture plane extending to the sustentaculum shreyas f the calcaneus. Fracture planes extend to the articular surface of the calcaneocuboid joint. - Morphine 2 mg IV q.4 hours PRN - Orthopedics recommendations: No surgical intervention suggested at the time, Cam boot applied without any complications. -keep leg elevated with 3-4 pillows propping up leg above the heart, with refill she resides the edema. -surgical intervention after resolution of the edema -remain nonweightbearing on the left foot -follow up with orthopedic clinic for ORIF. -patient is started on consistent carbohydrate diet, given no surgical intervention at this time. Fracture of dorsal medial aspect of the cuboid - CT left ankle: Associated fracture involving the anterior process of the calcaneus and fracture deformity at the dorsal medial aspect of the proximal cuboid. - as above Fracture at the posterior aspect of the lateral malleolus - CT left ankle: Small fracture at the posterior aspect of the lateral malleolus with small mildly displaced osseous fragment along its posterior aspect - as above Uncontrolled type 2 diabetes mellitus with hyperglycemia, HbA1c 8.1% -Mild SSI -Accu-Cheks -Consistent carbohydrate diet Hypertension - Losartan 50 mg p.o. daily Hyperlipidemia - atorvastatin 10 mg p.o. daily History of nonocclusive PE - Lovenox 90 mg SC q.12 hours Diabetic neuropathy - gabapentin 200 mg p.o. daily Rheumatoid arthritis - calcium acetate 667 mg p.o. t.i.d. -Vitamin-D 73493 units p.o. Q 7D Chronic HFpEF, currently not exacerbated - Jardiance 10 mg p.o. daily - furosemide 40 mg p.o. daily - metoprolol succinate 25 mg p.o. daily Depression, anxiety: Home medications quetiapine, hydroxyzine and duloxetine resumed. Morbid obesity -I have counseled the patient on the importance of obtaining a balanced diet, weight loss, and regular moderate exercise once condition permits Tobacco use -I have counseled the patient on the importance of complete smoking cessation as it is detrimental to general health for over 12 minutes DVT prophylaxis: Currently not indicated as the patient is on therapeutic Lovenox GI prophylaxis: Protonix 40 mg IV daily Case discussed with Dr. Jacques Plan discussed with: Patient, Other Date of Service: Jul 12, 2025 Billing Provider: DAYRON JACQUES MD Common Visit Codes: 27930-[id number] INP/OBS CARE(HIGH) Secondary Visit Codes: 56454-[id number] CARE PLAN 30 MINUTES VANESSA CALDERON Jul 12, 2025 11:13 DAYRON JACQUES MD Jul 16, 2025 00:08
--- NOTE | 2025-07-12 13:27 | DVHINCON2 ---
Date of service: Jul 12, 2025 Reason for Consultation Left calcaneus fracture History of Present Illness Mrs. Fitzgerald is a 59-year-old female who was brought to the hospital after experiencing a mechanical fall last where she reports that she was climbing the stairs of her trailer when she missed a step and her left foot went in between one of the steps which caused her to fall backwards and her foot got stuck and felt severe pain and inability to bear weight on that foot since the incident. Patient was taken to [facility] where she was given pain me dication and was told that she had no fracture and was discharged home. However the patient continued to experience progressively worsening left foot pain and continued to be unable to bear weight on that side which prompted her to come into our emergency department for an evaluation. Patient was otherwise feeling well denying any other complaints or concerns during my evaluation. Past Medical History Hypertension, diabetes, hyperlipidemia, rheumatoid arthritis, diabetes, HFpEF Past Surgical History Hysterectomy and mass excision of her left kidney Family History: Cardiovascular disease G8 MOTHER, Cerebrovascular accident (CVA) G8 FATHER, Family History Noncontributory Social History Patient admits to smoking less than one pack a day as well as occasional alcohol intake but denied any other illicit substance abuse Allergies: Coded Allergies: NO KNOWN ALLERGIES (Unverified , 02/23/23) Home Meds Active Scripts Prednisone (Prednisone) 20 Mg Tab, 20 MG PO DAILY, #7 MG Prov:WILLIAM GOFF MD 11/27/23 Cephalexin (KEFLEX CAPSULE) 250 Mg Cp, 1 CAP PO QID, #28 CAP Prov:WILLIAM GOFF MD 11/27/23 Apixaban Base (ELIQUIS) 5 Mg Tab, 5 MG PO BID for 30 Days, #60 TAB 1 Refill Prov:CHI GIBSON DO 03/01/23 Reported Medications Folic Acid (Folic Acid) 1 Mg Tab, 1 TAB PO DAILY 11/24/23 Omeprazole (Gnp Omeprazole) 20 Mg Tab, 1 TAB PO DAILY 11/24/23 Furosemide (Furosemide) 40 Mg Tab, 1 TAB PO DAILY 11/24/23 Methotrexate (Methotrexate) 2.5 Mg Tab, 8 TAB PO QWEEKLY 11/24/23 Losartan Potassium (Losartan Potassium) 50 Mg Tab, 1 TAB PO DAILY for 30 Days, MG 11/24/23 Metoprolol Succinate (Metoprolol Succinate Er) 25 Mg Tab, 1 TAB PO DAILY Take 1/2 tablet by mouth every day 11/24/23 Empagliflozin (Jardiance) 10 Mg Tab, 1 TAB PO DAILY 02/24/23 Duloxetine HCl (Duloxetine HCl) 60 Mg Cap, 1 CAP PO DAILY 02/24/23 Duloxetine HCl (Duloxetine HCl) 20 Mg Cap, 1 CAP PO DAILY 02/24/23 Clonazepam (Clonazepam) 1 Mg Tab, 1 TAB PO HS 02/24/23 Quetiapine Fumerate (QUETIAPINE FUMARATE) 100 Mg Tab, 1 TAB PO BID TAKE ONE TABLET IN THE MORNING AND 2 TABLETS BEFORE BEDTIME. 02/24/23 Hydroxyzine Hcl (Hydroxyzine Hcl) 25 Mg Tab, 1 TAB PO QID 02/24/23 Pioglitazone Hydrochloride (PIOGLITAZONE HCL) 15 Mg Tab, 1 TAB PO DAILY 02/24/23 Gabapentin (Gabapentin) 100 Mg Cap, 2 TAB PO HS 02/24/23 Atorvastatin Calcium (ATORVASTATIN CALCIUM) 10 Mg Tab, 1 TAB PO HS 02/24/23 Current Medications Current Medications Medications (Trade) Dose Ordered Sig/Jerzy Route PRN Reason Start Time Stop Time Status Last Admin Acetaminophen (Tylenol Tablet) 325 mg Q4HP PRN PO MILD PAIN (1-3 PAIN SCALE) 07/12/25 01:00 Morphine Sulfate 2 mg Q4HPRN PRN IV SEVERE PAIN (7-10 PAIN SCALE) 07/12/25 01:00 07/12/25 11:56 Sodium Chloride 1,000 ml @ 100 mls/hr Q10H IV 07/12/25 01:00 07/12/25 04:39 Ergocalciferol (Vitamin D 50,000 Unit) 50,000 unit Q7D PO 07/12/25 09:00 Hold Calcium Acetate (Phoslo Capsule) 667 mg TIDWMEALS PO 07/12/25 08:00 07/12/25 12:18 Empaglifozin (Jardiance) 10 mg DAILY PO 07/12/25 10:00 07/12/25 09:30 Furosemide (Lasix Tablet) 40 mg DAILY PO 07/12/25 10:00 07/12/25 08:47 DC Gabapentin (Neurontin Capsule) 200 mg HS PO 07/12/25 22:00 Losartan Potassium (Cozaar Tablet) 50 mg DAILY PO 07/12/25 10:00 07/12/25 09:30 Quetiapine Fumarate (SEROquel TABLET) 100 mg BID PO 07/12/25 10:00 07/12/25 09:31 Patient Own Medication 1 tab HS PO 07/12/25 22:00 07/12/25 01:28 DC Patient Own Medication 1 tab HS PO 07/12/25 22:00 07/12/25 01:28 DC Patient Own Medication 1 cap DAILY PO 07/12/25 10:00 Hold Patient Own Medication 1 tab DAILY PO 07/12/25 10:00 07/12/25 01:28 DC Patient Own Medication 1 tab QID PO 07/12/25 06:00 07/12/25 01:29 DC Patient Own Medication 1 tab DAILY PO 07/12/25 10:00 07/12/25 01:29 DC Patient Own Medication 1 tab DAILY PO 07/12/25 10:00 07/12/25 01:29 DC Patient Own Medication 20 mg DAILY PO 07/12/25 10:00 07/12/25 01:29 DC Diagnostic Test (Pha) (Accu-Chek Comfort Curve T) 1 strip Q6HR 07/12/25 06:00 07/12/25 12:07 Insulin Human Regular (InsuLIN R) Q6HR SC 07/12/25 06:00 07/12/25 11:55 Dextrose 50 ml UD PRN IV Blood Sugar LESS THAN 60 07/12/25 01:00 Enoxaparin Sodium (Lovenox) 90 mg Q12HR SC 07/12/25 10:00 07/12/25 09:29 Atorvastatin Calcium (Lipitor) 10 mg HS PO 07/12/25 22:00 Clonazepam (KlonoPIN TABLET) 1 mg HS PO 07/12/25 22:00 Folic Acid 1 mg DAILY PO 07/12/25 10:00 07/12/25 09:31 Hydroxyzine Pamoate (Vistaril Oral) 25 mg QID PO 07/12/25 06:00 07/12/25 12:18 Metoprolol Succinate (Toprol Xl) 25 mg DAILY PO 07/12/25 10:00 07/12/25 09:30 Prednisone 20 mg DAILY PO 07/12/25 10:00 07/12/25 09:31 Pantoprazole Sodium (Protonix Tablet) 40 mg DAILY PO 07/12/25 10:00 07/12/25 09:30 Magnesium Sulfate/ Dextrose 100 ml @ 100 mls/hr Q1HR IV 07/12/25 09:00 07/12/25 10:59 DC 07/12/25 10:37 Review of Systems 10 point review of systems negative except as per HPI Vital Signs Vital Signs Date Time Temp Pulse Resp B/P (MAP) Pulse Ox O2 Delivery O2 Flow Rate FiO2 07/12/25 13:00 90 16 143/67 (92) 98 07/12/25 08:30 Room Air* 0 21 07/12/25 08:00 98.1 98.1 Physical Exam General appearance: A&O x4 in no acute distress HEENT: Normal ENT inspection, pharynx normal, TMs normal Neck: Full range of motion, nontender, normal inspection Respiratory: Chest nontender, without accessory muscle use, no respiratory distress Cardiovascular: No edema, no JVD, normal peripheral pulses Gastrointestinal: Soft, nontender, no organomegaly. Musculoskeletal: Left foot range of motion grossly limited with pain on slight movement, mild calf tenderness, normal capillary refill, moderate pedal edema, neurovascularly intact. Skin: Dry, normal color, warm Lymphatic: No adenopathy Labs/Diagnostic Data Labs Test 07/12/25 11:46 07/12/25 10:00 07/12/25 03:30 07/12/25 01:04 Range/Units POC Glucose 245 H 70-106 mg/dl White Blood Count 6.6 4.4-10.8 10^3/uL Red Blood Count 4.19 4.0-5.20 10^6/uL Hemoglobin 11.2 L 12.2-16.2 g/dL Hematocrit 33.6 #L 36.0-46.0 % Mean Corpuscular Volume 80.2 80.0-100.0 fL Mean Corpuscular Hemoglobin 26.8 L 28.0-32.0 pg Mean Corpuscular Hemoglobin Concent 33.5 32.0-36.0 g/dL Red Cell Distribution Width 13.6 11.8-14.3 % Platelet Count 299 140-450 10^3/uL Mean Platelet Volume 7.8 6.9-10.8 fL Neutrophils (%) (Auto) 64.5 37.0-80.0 % Lymphocytes (%) (Auto) 26.0 10.0-50.0 % Monocytes (%) (Auto) 7.9 0.0-12.0 % Eosinophils (%) (Auto) 1.3 0.0-7.0 % Basophils (%) (Auto) 0.3 0.0-2.0 % Neutrophils # (Auto) 4.2 1.6-8.6 10 ^3/uL Lymphocytes # (Auto) 1.7 0.4-5.4 10 ^3/uL Monocytes # (Auto) 0.5 0-1.3 10 ^3/uL Eosinophils # (Auto) 0.1 0-0.8 10 ^3/uL Basophils # (Auto) 0 0-0.2 10 ^3/uL Nucleated Red Blood Cells 0.0 % Sodium Level 130 L 136-145 mmol/L Potassium Level 4.1 3.5-5.1 mmol/L Chloride Level 96 L 98-107 mmol/L Carbon Dioxide Level 24 20-31 mmol/L Anion Gap 10 5-15 Blood Urea Nitrogen 15 9-23 mg/dL Creatinine 0.97 0.550-1.02 mg/dL Glomerular Filtration Rate Calc 67 >90 mL/min BUN/Creatinine Ratio 15.5 10.0-20.0 Serum Glucose 183 H 74-106 mg/dL Calcium Level 9.0 8.7-10.4 mg/dL Total Bilirubin 0.6 0.2-1.0 mg/dL Aspartate Amino Transferase (AST) 34 13-40 U/L Alanine Aminotransferase (ALT) 24 7-40 U/L Alkaline Phosphatase 92 46-116 U/L Total Protein 7.0 5.7-8.2 g/dL Albumin 4.3 3.2-4.8 g/dL Urine Opiates Screen Pos NEGATIVE Urine Fentanyl Screen Neg NEGATIVE Urine Barbiturates Screen Neg NEGATIVE Urine Phencyclidine Screen Neg NEGATIVE Urine Amphetamines Screen Neg NEGATIVE Urine Benzodiazepines Screen Neg NEGATIVE Urine Cocaine Screen Neg NEGATIVE Urine Cannabinoids Screen Neg NEGATIVE Prothrombin Time 11.0 9.3-11.8 sec Prothrombin Time INR 1.04 0.9-1.15 Activated Partial Thromboplast Time 33.3 24.5-34.5 SEC Hemoglobin A1c 8.1 H <5.7 % A1C Lactic Acid Level 1.6 0.4-2.0 mmol/L Phosphorus Level 5.1 2.4-5.1 mg/dL Magnesium Level 1.5 L 1.6-2.6 mg/dL Vitamin B12 Level 797 211-911 pg/mL Vitamin D 25-Hydroxy 44.6 30.0-100 ng/mL Thyroid Stimulating Hormone (TSH) 3.05 0.55-4.78 uIU/mL Left ankle x-ray reviewed and demonstrated: Possible fracture involving the lateral aspect of the cuboid and talus. CT recommended. Diffuse soft tissue swelling. Left ankle CT scan reviewed and demonstrated: Acute, comminuted, intra-articular fracture of the calcaneus. Small fracture at the dorsal medial aspect of the cuboid. Small fracture at the posterior aspect of the lateral malleolus with small mildly displaced osseous fragment along its posterior aspect. Assessment Left comminuted calcaneus fracture Plan/Recommendation I had a very lengthy discussion with the patient and after discussing her case with Dr. Quiñones we have recommended against any surgical intervention at this time and instead advised to continue with conservative treatment with the use of a Cam boot that was applied during my evaluation without complications, and advised to remain with her leg in strict limb elevation with 3-4 pillows prop ping her leg up above her heart to allow time for resolution of her edema to be able to proceed with a surgical intervention. I also advised the patient to remain nonweightbearing on her left foot. I advised the patient to follow up with the [facility] to see Dr. Pascual next week for re- evaluation to discuss a potential ORIF of her left calcaneus fracture. Patient understood and agreed. Thank you for allowing us to participate in the care of your patient. Plan discussed with: Patient KYA RIDER Jul 12, 2025 13:27
--- NOTE | 2025-07-12 15:01 | ECG ---
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
[2025-07-12] MEDS ORDERED: PATIENTS OWN MEDICATION (Atorvastatin Calcium 1 TAB) PO SCH (22:00)
[2025-07-12] MEDS ORDERED: ATORVASTATIN 20 MG TAB PO SCH (22:00)
[2025-07-12] MEDS ORDERED: PATIENTS OWN MEDICATION (Clonazepam 1 TAB) PO SCH (22:00)
[2025-07-12] MEDS: GABAPENTIN 100 MG CAP PO SCH (22:35)
[2025-07-12] MEDS: clonazePAM 0.5 MG TAB PO SCH (22:36)
[2025-07-13 00:50] VITALS: BP 122/66; PULSE 83; RESP 18; TEMP 98.4; O2SAT 99
[2025-07-13 05:00] VITALS: BP 110/74; PULSE 80; RESP 17; TEMP 98.3; O2SAT 98
[2025-07-13 05:54] LABS: Urine Protein, UAD TRACE (Negative)
[2025-07-13] MEDS: ACETAMINOPHEN 325 MG TAB PO PRN (06:51)
[2025-07-13 07:14] LABS: Hematocrit 34.6 % (36.0-46.0); Hemoglobin 11.6 g/dL (12.2-16.2); Mean Corpuscular Hemoglobin 27.2 pg (28.0-32.0); Mean Corpuscular Volume 81.2 fL (80.0-100.0); Nucleated Red Blood Cells % 0.1 %
[2025-07-13 07:31] LABS: Alanine Aminotransferase 25 U/L (7-40); Albumin 4.3 g/dL (3.2-4.8); Alkaline Phosphatase 97 U/L (46-116); Anion Gap 9 (5-15); BUN/Creatinine Ratio 16.8 (10.0-20.0); Bilirubin, Total 0.5 mg/dL (0.2-1.0); Blood Urea Nitrogen 17 mg/dL (9-23); Calcium 9.6 mg/dL (8.7-10.4); Carbon Dioxide 28 mmol/L (20-31); Chloride 99 mmol/L (98-107); Potassium 4.2 mmol/L (3.5-5.1); Sodium 136 mmol/L (136-145); Total Protein 7.1 g/dL (5.7-8.2)
[2025-07-13 07:38] LABS: Glucose 161 mg/dL (74-106)
[2025-07-13 09:00] VITALS: BP 159/80; PULSE 86; RESP 16; TEMP 98.8; O2SAT 95
[2025-07-13] MEDS ORDERED: HYDR-4902 PO (10:34)
[2025-07-13 12:13] VITALS: BP 159/80; PULSE 101; TEMP 37.1
[2025-07-13 13:00] VITALS: BP 132/75; PULSE 82; RESP 17; TEMP 98.1; O2SAT 95
[2025-07-13 15:32] VITALS: BP 135/66; PULSE 84; RESP 17
--- NOTE | 2025-07-13 19:44 | DVHDSRES ---
Discharge Summary Date of Admission Resident Creating Document: VANESSA CALDERON Jul 12, 2025 at 00:54 Date of Discharge: Jul 13, 2025 Labs/Diagnostic Data: Laboratory Results Test 07/13/25 11:41 07/13/25 06:30 07/13/25 05:34 07/12/25 03:30 POC Glucose 268 mg/dl (70-106) White Blood Count 6.8 10^3/uL (4.4-10.8) Red Blood Count 4.27 10^6/uL (4.0-5.20) Hemoglobin 11.6 g/dL (12.2-16.2) Hematocrit 34.6 % (36.0-46.0) Mean Corpuscular Volume 81.2 fL (80.0-100.0) Mean Corpuscular Hemoglobin 27.2 pg (28.0-32.0) Mean Corpuscular Hemoglobin Concent 33.5 g/dL (32.0-36.0) Red Cell Distribution Width 13.7 % (11.8-14.3) Platelet Count 305 10^3/uL (140-450) Mean Platelet Volume 7.8 fL (6.9-10.8) Neutrophils (%) (Auto) 44.3 % (37.0-80.0) Lymphocytes (%) (Auto) 42.8 % (10.0-50.0) Monocytes (%) (Auto) 10.1 % (0.0-12.0) Eosinophils (%) (Auto) 2.4 % (0.0-7.0) Basophils (%) (Auto) 0.4 % (0.0-2.0) Neutrophils # (Auto) 3.0 10 ^3/uL (1.6-8.6) Lymphocytes # (Auto) 2.9 10 ^3/uL (0.4-5.4) Monocytes # (Auto) 0.7 10 ^3/uL (0-1.3) Eosinophils # (Auto) 0.2 10 ^3/uL (0-0.8) Basophils # (Auto) 0 10 ^3/uL (0-0.2) Nucleated Red Blood Cells 0.1 % Sodium Level 136 mmol/L (136-145) Potassium Level 4.2 mmol/L (3.5-5.1) Chloride Level 99 mmol/L (98-107) Carbon Dioxide Level 28 mmol/L (20-31) Anion Gap 9 (5-15) Blood Urea Nitrogen 17 mg/dL (9-23) Creatinine 1.01 mg/dL (0.550-1.02) Glomerular Filtration Rate Calc 64 mL/min (>90) BUN/Creatinine Ratio 16.8 (10.0-20.0) Serum Glucose 161 mg/dL (74-106) Calcium Level 9.6 mg/dL (8.7-10.4) Total Bilirubin 0.5 mg/dL (0.2-1.0) Aspartate Amino Transferase (AST) 26 U/L (13-40) Alanine Aminotransferase (ALT) 25 U/L (7-40) Alkaline Phosphatase 97 U/L (46-116) Total Protein 7.1 g/dL (5.7-8.2) Albumin 4.3 g/dL (3.2-4.8) Urine Color Light-yellow (Yellow) Urine Clarity Clear (Clear) Urine pH 6.0 (5.0-9.0) Urine Specific [place] 1.010 (1.001-1.035) Urine Protein Trace (Negative) Urine Ketones Negative (Negative) Urine Blood Negative /uL (Negative) Urine Nitrite Negative (Negative) Urine Bilirubin Negative (Negative) Urine Urobilinogen Normal mg/dL (Negative) Urine Leukocyte Esterase Negative /uL (Negative) Urine RBC <1 /hpf (0 - 4) Urine Microscopic WBC < 1 /HPF (0-5) Urine Squamous Epithelial Cells Few /hpf (<5) Urine Bacteria None seen /hpf (None Seen) Urine Glucose 4+ mg/dL (Normal) Urine Opiates Screen Pos (NEGATIVE) Urine Fentanyl Screen Neg (NEGATIVE) Urine Barbiturates Screen Neg (NEGATIVE) Urine Phencyclidine Screen Neg (NEGATIVE) Urine Amphetamines Screen Neg (NEGATIVE) Urine Benzodiazepines Screen Neg (NEGATIVE) Urine Cocaine Screen Neg (NEGATIVE) Urine Cannabinoids Screen Neg (NEGATIVE) Test 07/12/25 01:04 Prothrombin Time 11.0 sec (9.3-11.8) Prothrombin Time INR 1.04 (0.9-1.15) Activated Partial Thromboplast Time 33.3 SEC (24.5-34.5) Hemoglobin A1c 8.1 % A1C (<5.7) Lactic Acid Level 1.6 mmol/L (0.4-2.0) Phosphorus Level 5.1 mg/dL (2.4-5.1) Magnesium Level 1.5 mg/dL (1.6-2.6) Vitamin B12 Level 797 pg/mL (211-911) Vitamin D 25-Hydroxy 44.6 ng/mL (30.0-100) Thyroid Stimulating Hormone (TSH) 3.05 uIU/mL (0.55-4.78) Other Laboratory Tests 07/13/25 06:30 Brief Hx & Hospital Course: Ms. Amilcar Medina is a 59-year-old female with prior medical history of type 2 diabetes mellitus, hypertension, hyperlipidemia, rheumatoid arthritis, diabetic neuropathy, HFpEF, non occlusive PE, and uterine fibroids who presents to the ED with chief complaint of left foot pain. The patient states that on 07/06/2025 she was climbing the stairs of her trailer when she missed a step, her left foot got stuck, and she fell backwards down the steps. The patient states she immediately felt severe pain in her left foot and was taken to a hospital in [place] was told there was no fracture and to take [id number] pain medicine as needed. However, she states the foot continued to swell, the pain worsened, and she was unable to bear weight on her left foot, Which prompted her to seek care at the ED. On evaluation in the ED, the patient was tachycardic and hypertensive. Initial labs show CBC within normal range, hyponatremia and hyperglycemia. Left ankle x-ray shows possible fracture involving the lateral aspect of the cuboid and talus. Left ankle CT shows acute comminuted intra- articular fracture of the calcaneus, additional fracture planes in the calcaneus, small fracture at the dorsal medial aspect of the cuboid, small fracture of the posterior aspect of the lateral malleolus with a mildly displaced osseous fragment along its posterior aspect. She was started on IV pain medication. She was admitted for further workup and monitoring. Cardiovascular: CHF, HTN, hyperipidemia Pulmonary: Pulmonary embolus DIGITAL ACCOUNT COORDINATOR: Periperal neuropathy Rheumatologic: Rheumatoid arthritis Endocrine: Diabetes Past Surgical History: Hysterectomy, Other (Mass removal from left kidney) Smoke: <1 pack per day (Smokes 1 pack in 2 days and has done so for 46 years) ALCOHOL: heavy (Drinks 6-7 beers on Saturdays) Drugs: None Lives: Alone Domestic Violence: Neg Orthopedics consult was done, cam beer boot placed without complications. Pain was managed with norco and toradol. Patient was advised to keep left leg elevated with pillows, after resolving edema ORIF is planned.Patient was advised to not bear weight on the left leg. Patient will follow up in orthopedics clinic in 1 week and discharge clinic in 2 weeks.The treatment and discharge plan was discussed with the daughter as well, they verbalized understanding. Examination Pt is lying on bed General Appearance: Alert, Oriented X3, Cooperative, Mild distress HEENT: Atraumatic, Mucous membranes moist/pink Respiratory: Clear to auscultation, Normal air movement, No added sounds Cardiovascular: Regular rate, Normal S1, Normal S2, No murmurs Abdominal/ : Active bowel sounds, Soft, no distention, no tenderness Extremities: No edema, Normal pulses, No tenderness/swelling Skin: No Significant rash, except past surgical scars Neuro: Normal speech, sensorimotor deficits none Psych/Mental Status: Mental status NL, Mood NL Nurse was there as head concierge during examination laboratory and microbiology brief h/o of hospitalization: Pt came in for left leg pain following trauma and we did a ct of the left ankle which showed acute commuinuted intra articular fracture of the calcaneus. frac exteded to the articular surface of the calcaneocuboid joint. we came the pt morphine 2mg iv q4 hours prn and did a orthopedic consult who recommended no surgical intervention suggested at this time, cam boot applied without any complications. pt was suggested to keep leg elevated with 3-4 pillows propping up leg above the heart, which helped the edema. surgical intervention after resolution of the edema can be done later. Remain nonweightbearing on the left foot and to follow up with orthopedic clinic for ORIF. pt also had fracture of dorsal medial aspect of the cuboid and Fracture at the posterior aspect of the lateral malleolus which the pt will f/u outpt as well. For pts Uncontrolled type 2 diabetes mellitus with hyperglycemia, HbA1c 8.1% we gave Mild SSI, did accu- Cheks and kept him in a consistent carbohydrate diet. For Hypertension we continued giving Losartan 50 mg p.o. daily and for Hyperlipidemia atorvastatin 10 mg p.o. daily was continued. we gave pt lovenox therapeutic dose as he has history of PE and gabapentin 200mg po daily. For Rheumatoid arthritis we continued the patient on calcium acetate 667 mg p.o. t.i.d. and Vitamin-D 05620 units p.o. Q 7D. Pt also has Chronic HFpEF, currently not exacerbated for which we gave Jardiance 10 mg p.o. daily , furosemide 40 mg p.o. daily and metoprolol succinate 25 mg p.o. daily. Pt is now stable for discharge and we have counseled the patient to followup with pcp and orthopedics outpt. Pt has communicated understanding and agreed to the discharge plan. Condition at Discharge: Stable Final Diagnosis/Problems List Left acute Comminuted intra-articular fracture of the calcaneus Fracture of dorsal medial aspect of the cuboid Fracture at the posterior aspect of the lateral malleolus aspect Uncontrolled type 2 diabetes mellitus with hyperglycemia, HbA1c 8.1% Hypertension Hyperlipidemia History of nonocclusive PE Diabetic neuropathy Rheumatoid arthritis Chronic HFpEF, currently not exacerbated Depression, anxiety Morbid obesity Tobacco use Discharge Disposition: Home Discharge Instruct/Medications Diet: Consistent carbohydrate Activity: No Restrictions, As Tolerated Follow Up/Referral: Follow up in orthopedics clinic in 1 week. Follow up in [place] clinic in 2 weeks Medications: As per EMR Scheduled Apixaban Base (Eliquis), 5 MG PO BID Atorvastatin Calcium (Atorvastatin Calcium), 1 TAB PO HS, (Reported) Clonazepam (Clonazepam), 1 TAB PO HS, (Reported) Duloxetine HCl (Duloxetine HCl), 1 CAP PO DAILY, (Reported) Duloxetine HCl (Duloxetine HCl), 1 CAP PO DAILY, (Reported) Empagliflozin (Jardiance), 1 TAB PO DAILY, (Reported) Folic Acid (Folic Acid), 1 TAB PO DAILY, (Reported) Furosemide (Furosemide), 1 TAB PO DAILY, (Reported) Gabapentin (Gabapentin), 2 TAB PO HS, (Reported) Hydroxyzine Hcl (Hydroxyzine Hcl), 1 TAB PO QID, (Reported) Losartan Potassium (Losartan Potassium), 1 TAB PO DAILY, (Reported) Methotrexate (Methotrexate), 8 TAB PO QWEEKLY, (Reported) Metoprolol Succinate (Metoprolol Succinate Er), 1 TAB PO DAILY, (Reported) Omeprazole (Gnp Omeprazole), 1 TAB PO DAILY, (Reported) Pioglitazone Hydrochloride (Pioglitazone Hcl), 1 TAB PO DAILY, (Reported) Prednisone (Prednisone), 20 MG PO DAILY Quetiapine Fumerate (Quetiapine Fumarate), 1 TAB PO BID, (Reported) Scheduled PRN Hydrocodone-Acetaminophen (Hydrocodone Bitartrate/AC 5-325 mg), 1 TAB PO Q6HP PRN Discontinued Medications Cephalexin (Keflex Capsule), 1 CAP PO QID Discharge Statement: "Patient was advised to return to the ER or call 911 if any headaches, dizziness, shortness of breath, chest pain, abdominal pain, bleeding, fevers, or worsening of medical condition. Patient was counseled about treatment plan, medications, possible side effects, patientverbalized understanding. All questions were answered to the best of my ability. This discharge took greater then 30 minutes in planning, reviewing documentation, counseling the patient, and discussing with other team members." ASSESSMENT ASSESSMENT Assessment Left Calcaneal fracture Date of Service: Jul 13, 2025 Billing Provider: DAYRON BELL MD Common Visit Codes: 58555-JEX/OBS DISCH DAY >30min YUMIKOVANESSA Eldridge Jul 13, 2025 19:44 DAYRON BELL MD Jul 16, 2025 00:08
== END 2025-07-13 17:20 | disposition home or self-care (01) | DRG 342 ==
LOC: ER 09:26 → OVERFLOW 07-12 00:54 → CENTRAL 07-12 16:41
PROVIDERS: ADMIT Internal Medicine Geriatric Medicine; ATTEND Internal Medicine Geriatric Medicine
DX: S92.062A Displaced intraarticular fracture of left calcaneus, initial encounter for closed fracture (principal); I50.32 Chronic diastolic (congestive) heart failure; I11.0 Hypertensive heart disease with heart failure; S82.62XA Displaced fracture of lateral malleolus of left fibula, initial encounter for closed fracture; E11.40 Type 2 diabetes mellitus with diabetic neuropathy, unspecified; E78.5 Hyperlipidemia, unspecified; W10.9XXA Fall (on) (from) unspecified stairs and steps, initial encounter; M06.9 Rheumatoid arthritis, unspecified; E11.65 Type 2 diabetes mellitus with hyperglycemia; E66.01 Morbid (severe) obesity due to excess calories; F17.210 Nicotine dependence, cigarettes, uncomplicated; F41.9 Anxiety disorder, unspecified; F32.A Depression, unspecified; S92.212A Displaced fracture of cuboid bone of left foot, initial encounter for closed fracture; Z68.37 Body mass index [BMI] 37.0-37.9, adult; Y93.89 Activity, other specified; Y92.89 Other specified places as the place of occurrence of the external cause; Y99.8 Other external cause status; Z82.3 Family history of stroke; Z82.49 Family history of ischemic heart disease and other diseases of the circulatory system; Z90.710 Acquired absence of both cervix and uterus; Z79.899 Other long term (current) drug therapy
CPT/HCPCS: 36415; 72170; 73502; 73562; 73610; 73700; 80048; 80053; 80307; 81001; 82306; 82607; 82962; 83036; 83605; 83735; 84100; 84443; 85025; 85610; 85730; 93005; 96374; 96375; 97163; G0378; J1815; J2405